=== PATIENT | male | born 1940 | race Caucasian/White ===

== ENCOUNTER 2021-10-15 07:39 | Day surgery (SDC) | payer MEDICARE ==
[2021-10-15] VITALS (14 sets, daily range): BP systolic 105–156; BP diastolic 56–98
[~2021-10-15] VITALS: Ht 198.1 cm; Wt 110.5 kg
[~2021-10-15 07:39] MED LIST: AMLO5TAB10 PO
[2021-10-15] MEDS ORDERED: LORazepam 0.5 MG tablet PO PRN (08:20)
[2021-10-15] MEDS ORDERED: nitroGLYCERIN 0.4mg SUBLingual tab SL PRN ×2 (08:20→12:20)
[2021-10-15] MEDS ORDERED: normal saline 1,000 ML IV SCH (08:20)
[2021-10-15] MEDS ORDERED: diphenhydrAMINE 25mg capsule PO PRN (08:20)
[2021-10-15] MEDS ORDERED: GABA-530 PO (08:38)
[2021-10-15] MEDS ORDERED: PANT40TA54 PO (08:38)
[2021-10-15] MEDS ORDERED: CARB1TAB42 PO (08:38)
[2021-10-15] MEDS ORDERED: CLOP75TA34 PO (08:38)
[2021-10-15] MEDS ORDERED: ROSU40TA22 PO (08:38)
[2021-10-15] MEDS ORDERED: IRON PO (08:41)
[2021-10-15] MEDS ORDERED: MELA5CAP PO (08:41)
[2021-10-15] MEDS ORDERED: MULT-1085 PO (08:41)
[2021-10-15 08:42] LABS: ALBUMIN 3.8 G/DL (3.4-5.0); ANION GAP 9 (8-16); APTT 28 SECONDS (22-32); BLOOD UREA NITROGEN 16 MG/DL (7-18); BUN/CREATININE RATIO 15.1 (5.4-32.0); CALCIUM 9.2 MG/DL (8.5-10.1); CHLORIDE 106 MMOL/L (99-107); CREATININE 1.06 MG/DL (0.60-1.10); GLUCOSE 94 MG/DL (70-104); SODIUM 142 MMOL/L (135-145); TOTAL CARBON DIOXIDE 27.3 MMOL/L (24-32); eGFR 67 ML/MIN
[2021-10-15 09:17] LABS: BASOPHILS % (AUTO) 0.8 % (0-1); EOSINOPHILS # (AUTO) 0.1 X10'3 (0-0.9); EOSINOPHILS % (AUTO) 2.3 % (0-6); HEMOGLOBIN 14.5 g/dl (14.0-17.9); LYMPHOCYTES # (AUTO) 1.5 X10'3 (1.1-4.8); LYMPHOCYTES % (AUTO) 24.9 % (21-51); MEAN CORPUSCULAR HEMOGLOBIN 32.1 PG (27.0-31.0); MEAN CORPUSCULAR HGB CONC 33.1 g/dL (33.0-36.5); MEAN CORPUSCULAR VOLUME 97.2 FL (78-98); MONOCYTES # (AUTO) 0.6 X10'3 (0-0.9); MONOCYTES % (AUTO) 9.8 % (2-12); NEUTROPHILS # (AUTO) 3.7 X10'3 (1.8-7.7); NEUTROPHILS % (AUTO) 62.2 % (42-75); RED BLOOD COUNT 4.53 X10'6 (4.70-6.10); RED CELL DISTRIBUTION WIDTH 13.5 % (11.5-14.5)
[2021-10-15 09:20] LABS: PLATELET COUNT 174 X10'3 (140-440)
[2021-10-15] MEDS ORDERED: iohexol 350 MG/ML 50ML vial IV ONE (10:16)
[2021-10-15] MEDS ORDERED: heparin 1,000unit/ml 10ml vial 10 ML ONE (10:16)
[2021-10-15] MEDS ORDERED: LIDOcaine 1% (10mg/ml)w/preservative injection 20ml MDV ONE (10:16)
[2021-10-15] MEDS ORDERED: midazolam 1 mg/ML 2ml injection ONE (10:16)
[2021-10-15] MEDS ORDERED: iohexol 350MG/ML 100ml bottle IV ONE (10:16)
[2021-10-15] MEDS ORDERED: fentaNYL/PF 50MCG/1 ML 2ML syringe ONE (10:16)
[2021-10-15] MEDS ORDERED: proCHLORperazine 10 MG/2 ml inj ONE (11:12)
[2021-10-15] MEDS ORDERED: nitroGLYCERIN-Tridil 50MG/D5W 250 ML IV ONE (11:25)
[2021-10-15] MEDS ORDERED: ondansetron/PF 4mg/2ml inj IV PRN (12:20)
[2021-10-15] MEDS ORDERED: HYDROcodone/acetaminophen 5mg/325mg tablet PO PRN (12:20)
[2021-10-15] MEDS ORDERED: proCHLORperazine 10 MG/2 ml inj IV PRN (12:20)
[2021-10-15] MEDS ORDERED: OXAZEpam 15mg capsule PO PRN (12:20)
[2021-10-15] MEDS ORDERED: HYDROcodone/acetaminophen 10/325mg tab PO PRN (12:20)
== END 2021-10-15 19:00 | disposition home or self-care (01) ==
LOC: SSTAY O 07:39
PROVIDERS: ATTEND Internal Medicine Cardiovascular Disease
DX: R94.39 Abnormal result of other cardiovascular function study (principal); I25.10 Atherosclerotic heart disease of native coronary artery without angina pectoris; G62.9 Polyneuropathy, unspecified; E78.5 Hyperlipidemia, unspecified; I10 Essential (primary) hypertension; Z87.891 Personal history of nicotine dependence; Z86.73 Personal history of transient ischemic attack (TIA), and cerebral infarction without residual deficits; Z79.899 Other long term (current) drug therapy; Z79.01 Long term (current) use of anticoagulants
CPT/HCPCS: 36415; 71046; 80048; 85025; 85610; 85730; 93005; 93458; 99152; C1760; C1769; J0780; J1644; J2250; J3010; J3490; J7030; Q0163; Q9967; 99153; A4620; A6258